=== PATIENT | female | born 1980 | race Caucasian/White ===

== ENCOUNTER 2016-09-22 09:55 | Emergency (ER) | payer OTHER ==
[~2016-09-22] VITALS: Ht 210.8 cm; Wt 153.0 kg
[2016-09-22 12:53] VITALS: BP 151/88
== END 2016-09-22 12:52 | disposition home or self-care (01) ==
LOC: ED 09:57
DX: M48.02 Spinal stenosis, cervical region (principal)
CPT/HCPCS: 72125; 99282; 99283

== ENCOUNTER 2016-11-12 13:23 | Emergency (ER) | payer MEDICAID ==
[~2016-11-12] VITALS: Ht 182.9 cm; Wt 154.0 kg
[~2016-11-12 13:23] MED LIST: ACHYD1T PO; ALBU8CC IH; ALPR1TAB2 PO; AMOX1TAB12 PO; CEFD300C PO; CLIN-78 PO; DOCU-34 PO; FENO160T PO; FENO50CA2 PO; FLUT1DIS3 IH; FURO-125 PO; FURO20TA4 PO; FURO40TA4 PO; GABA300C PO; GABA800T2 PO; GBPN300C PO; GBPN600T PO; HCT25T PO; HYDR-3063 PO; HYDR-3708 PO; HYDR-3811 PO; HYDR-3882 PO; HYDR1TAB88 PO; IBP800T PO; IBUP100T47 PO; INSASP1U SQ; INSU100V32 SC; INSU100V32 SQ; LIRA0.6P2 SQ; LISI-595 PO; LORA-405; LORA-405 PO; LORA1TAB PO; LSNP10T PO; LVT.1T PO; METF1000 PO; METF500T4 PO; METO-272 PO; METO-311 PO; METO50TA7 PO; MINO100C40; MIRALAX 17 GM P17 GM PO; MTC10T; MTC10T PO; MTP25TSR PO; NF-LISIN40 PO; OMEP20CA6 PO; OXYC-272 PO; OXYC1TAB87 PO; POTA-57 PO; POTA10CA43 PO; PRAV40TA2 PO; PRAV80TA2 PO; PRED50TA PO; PRM25T PO; ROSU40TA PO; SERT50TA PO; SERT50TA2 PO; SMTR50T PO; TRAZ-28 PO; TRAZ150T72 PO; WALKER; ZOLP10TA PO; [UNRECOGNIZED DRUG - CODE] PO; advair
[2016-11-12 14:34] LABS: BASOPHILS % (AUTO) 0 % (0-2); EOSINOPHILS # (AUTO) 0.1 10^3uL; EOSINOPHILS % (AUTO) 1 % (0-4); LYMPHOCYTES # (AUTO) 2.1 X10^3; MEAN CORPUSCULAR HEMOGLOBIN 29.3 PG (26.0-34.0); MEAN CORPUSCULAR HGB CONC 34.5 g/dL (31.0-37.0); MEAN CORPUSCULAR VOLUME 85 FL (80-100); MEAN PLATELET VOLUME 9.7 FL (6.0-9.5); MONOCYTES # (AUTO) 0.5 X10^3; MONOCYTES % (AUTO) 4 % (3-11); NEUTROPHILS % (AUTO) 74 % (51-67); PLATELET COUNT 228 10^3uL (150-450); WHITE BLOOD COUNT 10.75 10^3uL (4.0-11.0)
[2016-11-12] MEDS ORDERED: ONDANSETRON 4 MG (ZOFRAN) ORAL DISSOLVE TAB PO ONE (14:40)
[2016-11-12] MEDS ORDERED: HYDROmorphone 1 MG/ML (DILAUDID) SYRINGE IM ONE (14:40)
[2016-11-12 14:55] LABS: ALBUMIN 3.9 g/dL (3.4-5.0); ANION GAP 15.7 MEQ/L (3-15); TOTAL PROTEIN 7.1 g/dL (6.4-8.5)
[2016-11-12 15:06] LABS: BILIRUBIN,URINE Negative (Negative); CLARITY,URINE Clear; GLUCOSE, URINE (UA) 2+ (Negative); LEUKOCYTE ESTERASE ,URINE Negative (Negative); PH,URINE 5.5 (5.0 - 8.0); UROBILINOGEN,URINE 0.2 mg/dL (0.2-1.0)
[2016-11-12 15:11] LABS: COLOR,URINE Dark Yellow
[2016-11-12 15:21] LABS: URINE CENTRIFUGED VOLUME 12 mL
--- NOTE | 2016-11-12 15:46 | Diagnostic Imaging Report ---
INDICATION: Abdominal pain. TECHNIQUE: PA chest, supine and upright abdominal images were obtained. FINDINGS: Lungs are clear. There is no intraperitoneal free air. Gallbladder appears to be surgically absent. Bowel gas pattern is normal. There are no pathologic masses or calcifications. IMPRESSION: No acute abnormality is seen in the abdomen. Dictated by: Dictated on workstation # [id number]
[2016-11-12] MEDS ORDERED: INSULIN REGULAR 1 UNIT/0.01 ML DOSE SC ONE (15:50)
--- NOTE | 2016-11-12 16:07 | NUR ---
Pio hermosillo in ED - 11/12/16 at 1611 by [id number] PT CALLS OUT AFTER TALKING WITH ED DR CRUZ) & STATES SHE DOESN'T WANT "THE SHOT...I WANT TO GO HOME". PT IS TALKING ON THE HOSPITAL PHONE AT THIS TIME. DAUGHTER AT THE BEDSIDE. CL
[2016-11-12 17:04] VITALS: BP 123/67
== END 2016-11-12 17:06 | disposition home or self-care (01) ==
LOC: ED 13:24
DX: R10.31 Right lower quadrant pain (principal); E11.65 Type 2 diabetes mellitus with hyperglycemia; Z79.4 Long term (current) use of insulin
CPT/HCPCS: 36415; 74022; 80053; 81003; 81015; 83690; 84702; 85025; 96372; 99283; A9270; J1170; J1815; 99282